=== PATIENT | male | born 1965 | race Caucasian/White ===

== ENCOUNTER 2018-06-26 10:06 | Observation (INO) | payer BC ==
[2018-06-26] MEDS: Nitroglycerin 0.4 MG Tab.SL SL ONE ×2 (10:17→10:30)
[2018-06-26] MEDS ORDERED: Sodium Chloride 0.9% 10 ML Syringe FLUSH PRN (10:34)
--- NOTE | 2018-06-26 11:15 | EDM.PDOC ---
ED HPI GENERAL MEDICAL PROBLEM - General Chief Complaint: Chest Pain Stated Complaint: CHEST PAIN, DIZZY Time Seen by Provider: 06/26/18 10:06 Source of Information: Reports: Patient, Family, RN History Limitations: Reports: No Limitations - History of Present Illness INITIAL COMMENTS - FREE TEXT/NARRATIVE: 53 yr male presents with chest heaviness, started yesterday early afternoon, States the heaviness didn't stop He did take Jessica [place] this am 2 tablets. He has had the thyroid medicine and Propranolol this am. CqV4=160%, pulse 80, resp 18 BP 161/87. Pt is alert and diaphoretic, his is with him. States some numbness to hands, started yesterday. - Related Data Allergies Allergy/AdvReac Type Severity Reaction Status Date / Time Penicillins Allergy Cannot Verified 06/26/18 10:41 Remember Home Meds: Home Meds Levothyroxine 112 mcg PO ACBREAKFAST #30 tab 06/26/18 [Rx] Multivitamin [Multivitamins] 1 each PO DAILY 06/26/18 [History] Propranolol [Inderal LA 24 Hr] 60 mg PO DAILY 06/26/18 [History] Past Medical History HEENT History: Reports: None Cardiovascular History: Reports: None Respiratory History: Reports: None Neurological History: Reports: None Other Neuro History: tremors mostly in hands and sometimes in the head as well Endocrine/Metabolic History: Reports: None Hematologic History: Reports: None Oncologic (Cancer) History: Reports: None - Past Surgical History Other HEENT Surgeries/Procedures: vision with glasses working well Other Musculoskeletal Surgeries/Procedures:: laminectomy. back pain, with PT intervention at that time ED ROS GENERAL - Review of Systems Review Of Systems: See Below Constitutional: Reports: Weakness, Diaphoresis HEENT: Reports: No Symptoms Respiratory: Reports: No Symptoms Cardiovascular: Reports: Chest Pain, Dyspnea on Exertion Endocrine: Reports: No Symptoms GI/Abdominal: Reports: No Symptoms : Reports: No Symptoms Musculoskeletal: Reports: No Symptoms Skin: Reports: Diaphoresis Neurological: Reports: No Symptoms Psychiatric: Reports: Anxiety Hematologic/Lymphatic: Reports: No Symptoms Immunologic: Reports: No Symptoms ED EXAM, GENERAL - Physical Exam Exam: See Below Exam Limited By: No Limitations General Appearance: Alert, WD/WN, Anxious Eye Exam: Bilateral Eye: PERRL Ears: Hearing Grossly Normal Nose: Normal Inspection, Normal Mucosa Throat/Mouth: Normal Inspection, Normal Voice, No Airway Compromise Head: Atraumatic, Normocephalic Neck: Supple, Non-Tender, Full Range of Motion Respiratory/Chest: No Respiratory Distress, Lungs Clear, Normal Breath Sounds Cardiovascular: Regular Rate, Rhythm, No Edema GI/Abdominal: Soft, Non-Tender Back Exam: Normal Inspection Extremities: Normal Inspection, Normal Range of Motion, No Pedal Edema Neurological: Alert, Oriented, Normal Cognition Psychiatric: Normal Affect, Normal Mood Skin Exam: Warm, Normal Color, Diaphoretic Lymphatic: No Adenopathy Course - Vital Signs Last Recorded V/S: Last Vital Signs Temp 98.1 F 06/26/18 15:38 Pulse 72 06/26/18 18:00 Resp 18 06/26/18 18:00 BP 149/82 H 06/26/18 18:00 Pulse Ox 98 06/26/18 18:00 - Orders/Labs/Meds Orders: Active Orders 24 hr Category Date Time Status Cardiac Monitoring [RC] .As Directed Care 06/26/18 10:33 Active EKG Documentation Completion [RC] ASDIRECTED Care 06/26/18 10:10 Active Sodium Chloride 0.9% [Saline Flush] Med 06/26/18 10:34 Active 10 ml FLUSH ASDIRECTED PRN Peripheral IV Insertion Adult [OM.PC] Routine Oth 06/26/18 10:20 Ordered Medication Orders Sodium Chloride (Saline Flush) 10 ml FLUSH ASDIRECTED PRN PRN Reason: Keep Vein Open Last Admin: 06/26/18 10:25 Dose: 10 ml Labs: Laboratory Tests 06/26/18 06/26/18 06/26/18 Range/Units 10:10 10:10 10:10 WBC 11.7 H D (4.0-11.0) K/uL RBC 5.19 (4.50-6.50) M/uL Hgb 16.4 (13.0-18.0) g/dL Hct 47.5 (40.0-54.0) % MCV 92 (76-96) fL MCH 31.6 (27.0-32.0) pg MCHC 34.5 (31.0-35.0) g/dL RDW 13.6 (11.0-16.0) % Plt Count 231 D (150-400) K/uL MPV 9.6 (6.0-10.0) fL Neut % (Auto) 74.5 H (45.0-70.0) % Lymph % (Auto) 15.0 L (20.0-40.0) % [place] % (Auto) 8.7 (3.0-10.0) % Eos % (Auto) 1.5 (1.0-5.0) % Baso % (Auto) 0.3 (0.0-0.5) % Neut # (Auto) 8.74 H (2.00-7.50) K/uL Lymph # (Auto) 1.76 (1.50-4.00) K/uL [place] # (Auto) 1.02 H (0.20-0.80) K/uL Eos # (Auto) 0.18 (0.04-0.40) K/uL Baso # (Auto) 0.03 (0.02-0.10) K/uL Sodium 139 (136-145) mmol/L Potassium 4.3 (3.5-5.1) mmol/L Chloride 98 (98-107) mmol/L Carbon Dioxide 27.4 (21.0-32.0) mmol/L Anion Gap 17.9 H (5.0-15.0) mmol/L BUN 15 (8-26) mg/dL Creatinine 1.31 H (0.70-1.30) mg/dL Est Cr Clr Drug Dosing 73.22 mL/min Estimated GFR (MDRD) 58 L (>60) MLS/MIN BUN/Creatinine Ratio 11.5 (6-25) Glucose 136 H D (74-100) mg/dL Calcium 9.1 (8.5-10.1) mg/dL Total Bilirubin 1.0 (0.0-1.0) mg/dL AST 36 (15-37) U/L ALT 68 (12-78) U/L Alkaline Phosphatase 53 (46-116) U/L Troponin I < 0.017 (0.000-0.060) ng/mL Total Protein 7.8 (6.4-8.2) g/dL Albumin 3.8 (3.4-5.0) g/dL Globulin 4.0 (2.2-4.2) g/dL Albumin/Globulin Ratio 0.9 (0.8-2.0) TSH, Ultra Sensitive (0.358-3.740) uIU/mL 06/26/18 Range/Units 10:10 WBC (4.0-11.0) K/uL RBC (4.50-6.50) M/uL Hgb (13.0-18.0) g/dL Hct (40.0-54.0) % MCV (76-96) fL MCH (27.0-32.0) pg MCHC (31.0-35.0) g/dL RDW (11.0-16.0) % Plt Count (150-400) K/uL MPV (6.0-10.0) fL Neut % (Auto) (45.0-70.0) % Lymph % (Auto) (20.0-40.0) % Carter % (Auto) (3.0-10.0) % Eos % (Auto) (1.0-5.0) % Baso % (Auto) (0.0-0.5) % Neut # (Auto) (2.00-7.50) K/uL Lymph # (Auto) (1.50-4.00) K/uL [place] # (Auto) (0.20-0.80) K/uL Eos # (Auto) (0.04-0.40) K/uL Baso # (Auto) (0.02-0.10) K/uL Sodium (136-145) mmol/L Potassium (3.5-5.1) mmol/L Chloride (98-107) mmol/L Carbon Dioxide (21.0-32.0) mmol/L Anion Gap (5.0-15.0) mmol/L BUN (8-26) mg/dL Creatinine (0.70-1.30) mg/dL Est Cr Clr Drug Dosing mL/min Estimated GFR (MDRD) (>60) MLS/MIN BUN/Creatinine Ratio (6-25) Glucose (74-100) mg/dL Calcium (8.5-10.1) mg/dL Total Bilirubin (0.0-1.0) mg/dL AST (15-37) U/L ALT (12-78) U/L Alkaline Phosphatase (46-116) U/L Troponin I (0.000-0.060) ng/mL Total Protein (6.4-8.2) g/dL Albumin (3.4-5.0) g/dL Globulin (2.2-4.2) g/dL Albumin/Globulin Ratio (0.8-2.0) TSH, Ultra Sensitive 7.030 H D (0.358-3.740) uIU/mL Meds: Medications Generic Name Dose Route Start Last Admin Trade Name Freq PRN Reason Stop Dose Admin Sodium Chloride 10 ml 06/26/18 10:34 06/26/18 10:25 Saline Flush FLUSH 10 ml ASDIRECTED PRN Administration Keep Vein Open Discontinued Medications Generic Name Dose Route Start Last Admin Trade Name Freq PRN Reason Stop Dose Admin Nitroglycerin 0.4 mg 06/26/18 10:15 06/26/18 10:30 Nitrostat SL 06/26/18 10:16 0.4 mg ONETIME ONE Administration - Re-Assessments/Exams Free Text/Narrative Re-Assessment/Exam: 06/26/18 11:15 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 Troponin is negative. Nitro given X2 given and relief of chest pain/pressure. TSH is elevated and he has been having some adjustments with this recently. He did have his am medication. Will place on observation, with process coordinator and recheck troponin, may have cardiac diet as tolerated. IV continues of Nacl. Some diaphoresis continues. 06/26/18 19:02 Reviewed Troponins as negative. Notified pt and of results. Will discharge to home, refill of Levothyroxine and increase dose. Pt states increase in anxiety with stresses and noticing this too. States he had been on medicine about 10 year ago and feels like he needs something again. 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 Counseled on start of Escitalopram daily and RTC in 1 week for follow-up. Pt has a bottle of nitro and will go home with this. Instructed on use of Nitro and 1 tablet every 5 min if needed for chest pain, if after 2 dose, no resolution of chest pain, contact EMS. and pt state understanding. Departure - Departure Time of Disposition: 11:18 Disposition: Refer to Observation Condition: Good Clinical Impression: Chest pain, Hypothyroid, Elevated TSH - Problem List & Annotations (1) Chest pain SNOMED Code(s): 82154203 Code(s): R07.9 - CHEST PAIN, UNSPECIFIED Status: Acute Current Visit: Yes (2) Elevated TSH SNOMED Code(s): 336883395 Code(s): R79.89 - OTHER SPECIFIED ABNORMAL FINDINGS OF BLOOD CHEMISTRY Status: Acute Current Visit: Yes (3) Hypothyroid SNOMED Code(s): 99601056 Code(s): E03.9 - HYPOTHYROIDISM, UNSPECIFIED Status: Acute Current Visit : Yes - Problem List Review Problem List Initiated/Reviewed/Updated: Yes - My Orders Last 24 Hours: My Active Orders 06/26/18 10:10 EKG Documentation Completion [RC] ASDIRECTED 06/26/18 10:20 Peripheral IV Insertion Adult [OM.PC] Routine 06/26/18 10:33 Cardiac Monitoring [RC] .As Directed 06/26/18 10:34 Sodium Chloride 0.9% [Saline Flush] 10 ml FLUSH ASDIRECTED PRN - Assessment/Plan Last 24 Hours: My Active Orders 06/26/18 10:10 EKG Documentation Completion [RC] ASDIRECTED 06/26/18 10:20 Peripheral IV Insertion Adult [OM.PC] Routine 06/26/18 10:33 Cardiac Monitoring [RC] .As Directed 06/26/18 10:34 Sodium Chloride 0.9% [Saline Flush] 10 ml FLUSH ASDIRECTED PRN Plan: Will place on observation for this chest pain, resolved with nitro X 2. He did have ASA 650mg at home. Troponins and EKG and labs reviewed. NSR w rate of 80. OaV0=954% on room air. Diaphoresis is improving. Continue with IV fluid, process coordinator, VS q 4 hour and repeat troponin this afternoon. 17:00 Will discharge to home, refill of Levothyroxine and increase dose. Pt states increase in anxiety with stresses and noticing this too. States he had been on medicine about 10 year ago and feels like he needs something again. 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 Counseled on start of Escitalopram daily and RTC in 1 week for follow-up. Pt has a bottle of nitro and will go home with this. Instructed on use of Nitro and 1 tablet every 5 min if needed for chest pain, if after 2 dose, no resolution of chest pain, contact EMS. and pt state understanding.
[2018-06-26 18:37] VITALS: BP 149/82
[2018-06-26] MEDS ORDERED: Sodium Chloride 0.9% 1,000 ML IV SCH (19:30)
== END 2018-06-26 17:45 | disposition home or self-care (01) ==
LOC: LB.ED 10:06 → LB.MS 11:10 → UNDOADMOB 11:13
PROVIDERS: ADMIT Nurse Practitioner Family; ATTEND Nurse Practitioner Family
DX: R07.9 Chest pain, unspecified (principal); R79.89 Other specified abnormal findings of blood chemistry; E03.9 Hypothyroidism, unspecified; Z79.890 Hormone replacement therapy; Z88.0 Allergy status to penicillin
CPT/HCPCS: 36415; 80053; 84443; 84484; 85025; 93005; 96360; 96361; 99285-25; G0378; J7030

== ENCOUNTER 2019-11-28 08:59 | Day surgery (SDC) | payer BC ==
[~2019-11-28 08:59] MED LIST: Metoclopramide 10 MG/2 ML SDV IV PRN; Sodium Chloride 0.9% 1,000 ML IV SCH
[2019-11-28] MEDS ORDERED: Propofol 1,000 MG/100 ML SDV ONE (11:15)
[2019-11-28 11:49] VITALS: BP 135/75; PULSE 50
--- NOTE | 2019-11-28 17:12 | OR ---
DATE OF OPERATION: 11/28/2019 SURGEON: Gelacio Kang MD PREOPERATIVE DIAGNOSIS: Personal history of polyps and family history of colon cancer. POSTOPERATIVE DIAGNOSIS: Personal history of polyps and family history of colon cancer. PROCEDURE: Colonoscopy. ANESTHESIA: MAC. ESTIMATED BLOOD LOSS: None. COMPLICATIONS: None. INDICATION FOR THE PROCEDURE: The patient is a 54-year-old male who is here today for surveillance colonoscopy. He last had a colonoscopy about 4 years ago, was previously found to have benign polyps. Also has family history of colon cancer with both parents having colon cancer. The patient is here today for surveillance colonoscopy. DESCRIPTION OF PROCEDURE: Informed consent was obtained from the patient. The patient was taken to the operating room, placed on the table in left lateral decubitus position. Monitored anesthesia care was administered. Digital rectal exam performed, it was normal. Colonoscope was then advanced through the anus directed toward the cecum. Cecum was reached and identified by appendiceal orifice and ileocecal valve. Colonoscope was then slowly withdrawn. No polyps. No masses. No areas of ischemia or inflammation. No AV malformations or diverticula noted. Retroflexion was then performed in the rectum which was also otherwise unremarkable. Colonoscope was then withdrawn. FINDINGS: Normal colonoscopy. RECOMMENDATIONS: We would recommend repeat screening colonoscopy in 5 years for family history of colon cancer. OVI/ROB /[id number]
== END 2019-11-28 13:50 | disposition home or self-care (01) ==
LOC: LB.SDS 08:59
PROVIDERS: ATTEND Surgery
DX: K92.1 Melena (principal); N43.3 Hydrocele, unspecified; Z80.0 Family history of malignant neoplasm of digestive organs; Z86.010 Personal history of colon polyps; Z88.0 Allergy status to penicillin; Z98.890 Other specified postprocedural states
CPT/HCPCS: 45378; J2704; J7030; G0121

== ENCOUNTER 2021-04-17 18:30 | Observation (INO) | payer BC ==
[2021-04-17] MEDS: Albuterol/Ipratropium 3.0-0.5 MG/3 ML Neb Soln NEB SCH ×3 (18:48→19:40)
--- NOTE | 2021-04-17 19:09 | EDM.PDOC ---
ED HPI GENERAL MEDICAL PROBLEM - General Chief Complaint: Respiratory Problem Stated Complaint: gasping for air Time Seen by Provider: 04/17/21 18:45 Source of Information: Reports: Patient History Limitations: Reports: Respiratory Distress - History of Present Illness INITIAL COMMENTS - FREE TEXT/NARRATIVE: 55-year-old male presents to the ED complaining of shortness of breath. Patient had acute onset yesterday evening that gradually got worse over the last 24 hours. Patient has never experienced an episode like this. Patient felt well up to the point this occurred. Positive for: Minor allergies to his cats, cough. Negative for: Chest pain, trauma, fever, cardiac history, syncope/near syncope, nausea vomiting, rash, swollen joints, headache, blurred vision, diffic ulty swallowing, no constipation diarrhea black tarry stool or blood in stool. - Related Data Allergies Allergy/AdvReac Type Severity Reaction Status Date / Time Penicillins Allergy Cannot Verified 11/27/19 09:59 Remember Home Meds: Home Meds Levothyroxine 112 mcg PO ACBREAKFAST #30 tab 06/26/18 [Rx] Multivitamin [Multivitamins] 1 each PO DAILY 06/26/18 [History] Propranolol [Inderal LA 24 Hr] 60 mg PO DAILY 06/26/18 [History] Escitalopram [Lexapro] 10 mg PO DAILY 11/27/19 [History] Past Medical History HEENT History: Reports: None Cardiovascular History: Reports: None Respiratory History: Reports: None Genitourinary History: Reports: Prostate Disorder, Other (See Below) Other Genitourinary History: Enlarged prostate Neurological History: Reports: None Other Neuro History: tremors mostly in hands and sometimes in the head as well Psychiatric History: Reports: None Endocrine/Metabolic History: Reports: None Hematologic History: Reports: None Immunologic History: Reports: None Oncologic (Cancer) History: Reports: None Dermatologic History: Reports: Other (See Below) Other Dermatologic History: Very dry skin with heals toes and fingers cracking - Past Surgical History Other HEENT Surgeries/Procedures: vision with glasses working well GI Surgical History: Reports: Colonoscopy Other GI Surgeries/Procedures: Hx polyps Neurological Surgical History: Reports: Laminectomy Other Musculoskeletal Surgeries/Procedures:: laminectomy. back pain, with PT intervention at that time Social & Family History - Family History Family Medical History: No Pertinent Family History - Caffeine Use Caffeine Use: Reports: Coffee ED ROS GENERAL - Review of Systems Review Of Systems: See Below Constitutional: Reports: No Symptoms HEENT: Reports: No Symptoms Respiratory: Reports: Shortness of Breath, Wheezing, Cough Cardiovascular: Reports: No Symptoms Endocrine: Reports: No Symptoms GI/Abdominal: Reports: No Symptoms : Reports: No Symptoms Musculoskeletal: Reports: No Symptoms Skin: Reports: No Symptoms Neurological: Reports: No Symptoms Psychiatric: Reports: No Symptoms Hematologic/Lymphatic: Reports: No Symptoms Immunologic: Reports: Environmental Allergy (cats) ED EXAM, GENERAL - Physical Exam Exam: See Below Free Text/Narrative:: 55-year-old male presents in room 172 in a wheelchair, in obvious respiratory distress, speaking in 1-2 word sentences audible wheezing without auscultation, patient alert and oriented through 3 GCS 4 5 6, no obvious trauma Exam Limited By: Respiratory Distress General Appearance: WD/WN, Severe Distress (Respiratory) Eye Exam: Bilateral Eye: EOMI, PERRL Ears: Normal External Exam, Hearing Grossly Normal Nose: Normal Inspection, Normal Mucosa, No Blood Throat/Mouth: Normal Lips, Normal Voice, No Airway Compromise Head: Atraumatic, Normocephalic Neck: Normal Inspection. No: Lymphadenopathy (R), Lymphadenopathy (L) Respiratory/Chest: Respiratory Distress, Decreased Breath Sounds, Wheezing, Accessory Muscle Use, Prolonged Expiration Cardiovascular: Normal Peripheral Pulses, Regular Rate, Rhythm, No Edema, No Gallop, No JVD, No Murmur, No Rub GI/Abdominal: Normal Bowel Sounds, Non-Tender, Distended Back Exam: No: CVA Tenderness (R), CVA Tenderness (L) Extremities: Normal Inspection, Non-Tender, No Pedal Edema Neurological: Alert, Oriented Psychiatric: Normal Affect, Normal Mood Skin Exam: Warm, Intact, Normal Color, No Rash, Diaphoretic (To dry after treatment) Lymphatic: No Adenopathy #1 Interpretation EKG Date: 04/17/21 (Normal sinus rhythm, without ectopy, no ST elevation or depression, this is not a STEMI) Course - Vital Signs Last Recorded V/S: Last Vital Signs Temp 96.5 F L 04/17/21 19:44 Pulse 77 04/17/21 19:44 Resp 22 H 04/17/21 19:44 BP 138/88 04/17/21 19:44 Pulse Ox 96 04/17/21 19:44 - Orders/Labs/Meds Orders: Active Orders 24 hr Category Date Time Status RT Aerosol Therapy [RC] ASDIRECTED Care 04/17/21 19:02 Active RT Aerosol Therapy [RC] ASDIRECTED Care 04/17/21 19:43 Active Chest 1V Frontal [CR] Stat Exams 04/17/21 19:00 Taken Albuterol [Proventil Neb Soln] Med 04/17/21 19:42 Active 2.5 mg NEB Q2H PRN Albuterol/Ipratropium [DuoNeb 3.0-0.5 MG/3 ML] Med 04/17/21 19:15 Active 3 ml NEB QID EKG 12 Lead [EK] Routine Ther 04/17/21 19:00 Ordered Medication Orders Albuterol (Albuterol 0.083% 2.5 Mg/3 Ml Neb Soln) 2.5 mg NEB Q2H PRN PRN Reason: sob Albuterol/Ipratropium (Albuterol/Ipratropium 3.0-0.5 Mg/3 Ml Neb Soln) 3 ml NEB QID [facility] Admin: 04/17/21 19:40 Dose: 3 ml Documented by: Admin: 04/17/21 19:03 Dose: 3 ml Documented by: Admin: 04/17/21 18:48 Dose: 3 ml Documented by: GALDINO Labs: Laboratory Tests 04/17/21 04/17/21 04/17/21 Range/Units 18:45 18:50 19:00 WBC 6.0 D (4.0-11.0) K/uL RBC 5.22 (4.50-6.50) M/uL Hgb 15.4 (13.0-18.0) g/dL Hct 44.3 (40.0-54.0) % MCV 85 (76-96) fL MCH 29.5 (27.0-32.0) pg MCHC 34.8 (31.0-35.0) g/dL RDW 14.4 (11.0-16.0) % Plt Count 178 D (150-400) K/uL MPV 9.3 (6.0-10.0) fL Neut % (Auto) 65.1 (45.0-70.0) % Lymph % (Auto) 19.7 L (20.0-40.0) % [place] % (Auto) 6.3 (3.0-10.0) % Eos % (Auto) 8.1 H (1.0-5.0) % Baso % (Auto) 0.8 H (0.0-0.5) % Neut # (Auto) 3.92 (2.00-7.50) K/uL Lymph # (Auto) 1.19 L (1.50-4.00) K/uL [place] # (Auto) 0.38 (0.20-0.80) K/uL Eos # (Auto) 0.49 H (0.04-0.40) K/uL Baso # (Auto) 0.05 (0.02-0.10) K/uL D-Dimer, Quantitative (0-400) ng/mL Sodium (136-145) mmol/L Potassium (3.5-5.1) mmol/L Chloride (98-107) mmol/L Carbon Dioxide (21.0-32.0) mmol/L Anion Gap (5.0-15.0) mmol/L BUN (8-26) mg/dL Creatinine (0.70-1.30) mg/dL Est Cr Clr Drug Dosing Estimated GFR (MDRD) (>60) MLS/MIN BUN/Creatinine Ratio (6-25) Glucose (74-100) mg/dL Calcium (8.5-10.1) mg/dL Troponin I (0.000-0.060) ng/mL TSH, Ultra Sensitive (0.358-3.740) uIU/mL SARS-CoV-2 RNA (NEO) Cancelled SARS CoV-2 RNA Rapid NEO Negative 04/17/21 04/17/21 04/17/21 Range/Units 19:00 19:02 19:03 WBC (4.0-11.0) K/uL RBC (4.50-6.50) M/uL Hgb (13.0-18.0) g/dL Hct (40.0-54.0) % MCV (76-96) fL MCH (27.0-32.0) pg MCHC (31.0-35.0) g/dL RDW (11.0-16.0) % Plt Count (150-400) K/uL MPV (6.0-10.0) fL Neut % (Auto) (45.0-70.0) % Lymph % (Auto) (20.0-40.0) % [place] % (Auto) (3.0-10.0) % Eos % (Auto) (1.0-5.0) % Baso % (Auto) (0.0-0.5) % Neut # (Auto) (2.00-7.50) K/uL Lymph # (Auto) (1.50-4.00) K/uL [place] # (Auto) (0.20-0.80) K/uL Eos # (Auto) (0.04-0.40) K/uL Baso # (Auto) (0.02-0.10) K/uL D-Dimer, Quantitative < 100 (0-400) ng/mL Sodium 137 (136-145) mmol/L Potassium 4.0 (3.5-5.1) mmol/L Chloride 103 (98-107) mmol/L Carbon Dioxide 28.1 (21.0-32.0) mmol/L Anion Gap 9.9 (5.0-15.0) mmol/L BUN 16 (8-26) mg/dL Creatinine 1.08 (0.70-1.30) mg/dL Est Cr Clr Drug Dosing TNP Estimated GFR (MDRD) > 60 (>60) MLS/MIN BUN/Creatinine Ratio 14.8 (6-25) Glucose 151 H (74-100) mg/dL Calcium 8.7 (8.5-10.1) mg/dL Troponin I < 0.017 (0.000-0.060) ng/mL TSH, Ultra Sensitive 3.904 H (0.358-3.740) uIU/mL SARS-CoV-2 RNA (NEO) SARS CoV-2 RNA Rapid NEO Meds: Medications Generic Name Dose Route Start Last Admin Trade Name Freq PRN Reason Stop Dose Admin Albuterol 2.5 mg 04/17/21 19:42 Albuterol 0.083% 2.5 Mg/3 Ml Neb Soln NEB Q2H PRN sob Albuterol/Ipratropium 3 ml 04/17/21 19:15 04/17/21 19:40 Albuterol/Ipratropium 3.0-0.5 Mg/3 Ml Neb Soln NEB 3 ml QID DANIEL Administration Discontinued Medications Generic Name Dose Route Start Last Admin Trade Name Freq PRN Reason Stop Dose Admin Albuterol Confirm 04/17/21 19:48 04/17/21 19:41 Albuterol 0.083% 2.5 Mg/3 Ml Neb Soln Administered 04/17/21 19:49 Not Given Dose 2.5 mg .ROUTE .STK-MED ONE Diphenhydramine HCl Confirm 04/17/21 20:02 Diphenhydramine 50 Mg/Ml Sdv Administered 04/17/21 20:03 Dose 50 mg .ROUTE .STK-MED ONE Methylprednisolone Sodium Succinate 125 mg 04/17/21 19:35 04/17/21 19:06 Methylprednisolone Sodium Succinate 125 Mg/2 Ml Sdv IVPUSH 04/17/21 19:36 125 mg ONETIME ONE Administration Departure - Departure Time of Disposition: 17:45 Disposition: Refer to Observation Condition: Good Clinical Impression: Acute asthma - Discharge Information *PRESCRIPTION DRUG MONITORING PROGRAM REVIEWED*: No *COPY OF PRESCRIPTION DRUG MONITORING REPORT IN PATIENT CHENG: No Referrals: PCP,None [Primary Care Provider] - Forms: ED Department Discharge Sepsis Event Note (ED) - Focused Exam Vital Signs: Vital Signs Temp Pulse Resp BP Pulse Ox 04/17/21 19:44 96.5 F L 77 22 H 138/88 96 - My Orders Last 24 Hours: My Active Orders 04/17/21 19:00 Chest 1V Frontal [CR] Stat EKG 12 Lead [EK] Routine 04/17/21 19:02 RT Aerosol Therapy [RC] ASDIRECTED 04/17/21 19:15 Albuterol/Ipratropium [DuoNeb 3.0-0.5 MG/3 ML] 3 ml NEB QID 04/17/21 19:42 Albuterol [Proventil Neb Soln] 2.5 mg NEB Q2H PRN 04/17/21 19:43 RT Aerosol Therapy [RC] ASDIRECTED - Assessment/Plan Last 24 Hours: My Active Orders 04/17/21 19:00 Chest 1V Frontal [CR] Stat EKG 12 Lead [EK] Routine 04/17/21 19:02 RT Aerosol Therapy [RC] ASDIRECTED 04/17/21 19:15 Albuterol/Ipratropium [DuoNeb 3.0-0.5 MG/3 ML] 3 ml NEB QID 04/17/21 19:42 Albuterol [Proventil Neb Soln] 2.5 mg NEB Q2H PRN 04/17/21 19:43 RT Aerosol Therapy [RC] ASDIRECTED Assessment:: 1. Shortness of breath/wheezing Plan: ABC, history, DuoNeb continuous, exam, labs, chest x-ray, 125 mg Solu-Medrol, twelve-lead EKG: Patient's respiratory distress, gasping, inability to speak in full sentences cleared quickly with treatment with DuoNeb, and Solu-Medrol. Patient remained tight, wheezy in all lung pace despite treatment. Decision was made to admit patient to hospital for observation and further treatment to include continuous nebulized albuterol/ipratropium, Benadryl 50 mg, and if not necessary 2 g of magnesium IV infused slowly to reverse bronchospasm. Further investigation and thought should be devoted to the trigger of this event. PEnegative D-dimer Cardiacnegative twelve-lead EKG, negative troponin Pneumoniachest x-ray negative for consolidation, negative COVID-19
[2021-04-17] MEDS ORDERED: methylPREDNISolone Sodium Succinate 125 MG/2 ML SDV IVPUSH ONE (19:35)
[2021-04-17] MEDS ORDERED: Albuterol 0.083% 2.5 MG/3 ML Neb Soln NEB PRN (19:42)
[2021-04-17] MEDS ORDERED: Albuterol 0.083% 2.5 MG/3 ML Neb Soln ONE (19:48)
[2021-04-17] MEDS ORDERED: diphenhydrAMINE 50 MG/ML SDV ONE (20:02)
[2021-04-17] MEDS ORDERED: diphenhydrAMINE 50 MG/ML SDV IVPUSH ONE (20:29)
[2021-04-17] MEDS ORDERED: Sodium Chloride 0.9% 10 ML Syringe FLUSH PRN (20:30)
[2021-04-17] MEDS ORDERED: Albuterol/Ipratropium 3.0-0.5 MG/3 ML Neb Soln NEB PRN (20:30)
[2021-04-17] MEDS ORDERED: Acetaminophen 325 MG Tab PO PRN (20:30)
[2021-04-17] MEDS ORDERED: Magnesium Sulfate/D5W 1 GM/100 ML Premix Bag IV PRN (20:38)
--- NOTE | 2021-04-18 06:37 | PCM.HP.2 ---
H&P History of Present Illness - General Date of Service: 04/18/21 Admit Problem/Dx: Admission Diagnosis/Problem Admission Diagnosis/Problem Asthma Source of Information: Patient History Limitations: Reports: No Limitations - History of Present Illness Initial Comments - Free Text/Narative: Patient was admitted from ED to observation for an acute onset of asthma/wheezing with shortness of breath. This was an acute onset patient not experienced any episodes like this prior, patient was gasping to breathe, only able speak in 1-2 word sentences. No known triggers to the event, patient denies chest pain, syncope/near syncope, nausea vomiting, arm pain or jaw pain, dizzy l ightheaded, constipation diarrhea, blurred vision, headache, difficulty swallowing, rash, swollen joints or trauma. No toxic exposures or new products known. Patient does have a mild allergy to cats - Related Data Allergies/Adverse Reactions: Allergies Allergy/AdvReac Type Severity Reaction Status Date / Time Penicillins Allergy Cannot Verified 11/27/19 09:59 Remember Home Medications: Home Meds Levothyroxine 112 mcg PO ACBREAKFAST #30 tab 06/26/18 [Rx] Multivitamin [Multivitamins] 1 each PO DAILY 06/26/18 [History] Propranolol [Inderal LA 24 Hr] 60 mg PO DAILY 06/26/18 [History] Escitalopram [Lexapro] 10 mg PO DAILY 11/27/19 [History] Albuterol Sulfate [Albuterol Sulfate Hfa] 8.5 gm IH ASDIRECTED PRN #1 hfa.aer.ad 04/18/21 [Rx] Cetirizine HCl [Zyrtec] 10 mg PO DAILY #30 capsule 04/18/21 [Rx] Fluticasone Propionate [Flovent HFA] 2 puff INH BID #1 mdi 04/18/21 [Rx] Past Medical History HEENT History: Reports: None Cardiovascular History: Reports: None Respiratory History: Reports: None Genitourinary History: Reports: Prostate Disorder, Other (See Below) Other Genitourinary History: Enlarged prostate Neurological History: Reports: None Other Neuro History: tremors mostly in hands and sometimes in the head as well Psychiatric History: Reports: None Endocrine/Metabolic History: Reports: None Hematologic History: Reports: None Immunologic History: Reports: None Oncologic (Cancer) History: Reports: None Dermatologic History: Reports: Other (See Below) Other Dermatologic History: Very dry skin with heals toes and fingers cracking - Past Surgical History Other HEENT Surgeries/Procedures: vision with glasses working well GI Surgical History: Reports: Colonoscopy Other GI Surgeries/Procedures: Hx polyps Neurological Surgical History: Reports: Laminectomy Other Musculoskeletal Surgeries/Procedures:: laminectomy. back pain, with PT intervention at that time Social & Family History - Family History Family Medical History: No Pertinent Family History - Tobacco Use Tobacco Use Status *Q: Never Tobacco User - Caffeine Use Caffeine Use: Reports: Coffee - Recreational Drug Use Recreational Drug Use: No H&P Review of Systems - Review of Systems: Review Of Systems: See Below General: Reports: No Symptoms, Other (Obese) HEENT: Reports: No Symptoms Pulmonary: Reports: No Symptoms Cardiovascular: Reports: Chest Pain, Blood Pressure Problem Gastrointestinal: Reports: No Symptoms Genitourinary: Reports: No Symptoms Musculoskeletal: Reports: No Symptoms Skin: Reports: No Symptoms Psychiatric: Reports: No Symptoms Neurological: Reports: No Symptoms Hematologic/Lymphatic: Reports: No Symptoms Immunologic: Reports: No Symptoms Review of Systems Comment:: Patient is hypothyroid Exam - Exam Exam: See Below - Vital Signs Vital Signs: Last Vital Signs Temp 97.2 F 04/18/21 03:29 Pulse 57 L 04/18/21 03:29 Resp 16 04/18/21 03:29 BP 143/74 H 04/18/21 03:29 Pulse Ox 96 04/18/21 03:29 Weight: 283 lb 15.286 oz - Exam Quality Assessment: Supplemental Oxygen General: Alert, Oriented, 4 HEENT: PERRLA, Hearing Intact, Mucosa Moist & Peerless, Nares Patent, Normal Nasal Septum, Posterior Pharynx Clear, Conjunctiva Clear, EOMI, EACs Clear, TMs Clear Neck: Supple, Trachea Midline, 2 Lungs: Wheezing Cardiovascular: Regular Rate, Regular Rhythm GI/Abdominal Exam: Normal Bowel Sounds, Soft, Non-Tender, No Organomegaly, No Distention, No Abnormal Bruit, No Mass, Pelvis Stable Back Exam: Normal Inspection Extremities: Normal Inspection, Normal Range of Motion, Non-Tender, No Pedal Edema, Normal Capillary Refill Skin: Warm, Dry, Intact Neurological: Normal Speech, Normal Tone Neuro Extensive - Mental Status: Alert, Oriented x3, Normal Cognition, Memory Intact Psychiatric: Alert, Normal Affect, Normal Mood - Patient Data Lab Results Last 24 hrs: Laboratory Results - last 24 hr 04/17/21 04/17/21 04/17/21 Range/Units 18:45 18:50 19:00 WBC 6.0 D (4.0-11.0) K/uL RBC 5.22 (4.50-6.50) M/uL Hgb 15.4 (13.0-18.0) g/dL Hct 44.3 (40.0-54.0) % MCV 85 (76-96) fL MCH 29.5 (27.0-32.0) pg MCHC 34.8 (31.0-35.0) g/dL RDW 14.4 (11.0-16.0) % Plt Count 178 D (150-400) K/uL MPV 9.3 (6.0-10.0) fL Neut % (Auto) 65.1 (45.0-70.0) % Lymph % (Auto) 19.7 L (20.0-40.0) % [place] % (Auto) 6.3 (3.0-10.0) % Eos % (Auto) 8.1 H (1.0-5.0) % Baso % (Auto) 0.8 H (0.0-0.5) % Neut # (Auto) 3.92 (2.00-7.50) K/uL Lymph # (Auto) 1.19 L (1.50-4.00) K/uL [place] # (Auto) 0.38 (0.20-0.80) K/uL Eos # (Auto) 0.49 H (0.04-0.40) K/uL Baso # (Auto) 0.05 (0.02-0.10) K/uL D-Dimer, Quantitative (0-400) ng/mL Sodium (136-145) mmol/L Potassium (3.5-5.1) mmol/L Chloride (98-107) mmol/L Carbon Dioxide (21.0-32.0) mmol/L Anion Gap (5.0-15.0) mmol/L BUN (8-26) mg/dL Creatinine (0.70-1.30) mg/dL Est Cr Clr Drug Dosing Estimated GFR (MDRD) (>60) MLS/MIN BUN/Creatinine Ratio (6-25) Glucose (74-100) mg/dL Calcium (8.5-10.1) mg/dL Troponin I (0.000-0.060) ng/mL TSH, Ultra Sensitive (0.358-3.740) uIU/mL SARS-CoV-2 RNA (NEO) Cancelled SARS CoV-2 RNA Rapid NEO Negative 04/17/21 04/17/21 04/17/21 Range/Units 19:00 19:02 19:03 WBC (4.0-11.0) K/uL RBC (4.50-6.50) M/uL Hgb (13.0-18.0) g/dL Hct (40.0-54.0) % MCV (76-96) fL MCH (27.0-32.0) pg MCHC (31.0-35.0) g/dL RDW (11.0-16.0) % Plt Count (150-400) K/uL MPV (6.0-10.0) fL Neut % (Auto) (45.0-70.0) % Lymph % (Auto) (20.0-40.0) % [place] % (Auto) (3.0-10.0) % Eos % (Auto) (1.0-5.0) % Baso % (Auto) (0.0-0.5) % Neut # (Auto) (2.00-7.50) K/uL Lymph # (Auto) (1.50-4.00) K/uL [place] # (Auto) (0.20-0.80) K/uL Eos # (Auto) (0.04-0.40) K/uL Baso # (Auto) (0.02-0.10) K/uL D-Dimer, Quantitative < 100 (0-400) ng/mL Sodium 137 (136-145) mmol/L Potassium 4.0 (3.5-5.1) mmol/L Chloride 103 (98-107) mmol/L Carbon Dioxide 28.1 (21.0-32.0) mmol/L Anion Gap 9.9 (5.0-15.0) mmol/L BUN 16 (8-26) mg/dL Creatinine 1.08 (0.70-1.30) mg/dL Est Cr Clr Drug Dosing TNP Estimated GFR (MDRD) > 60 (>60) MLS/MIN BUN/Creatinine Ratio 14.8 (6-25) Glucose 151 H (74-100) mg/dL Calcium 8.7 (8.5-10.1) mg/dL Troponin I < 0.017 (0.000-0.060) ng/mL TSH, Ultra Sensitive 3.904 H (0.358-3.740) uIU/mL SARS-CoV-2 RNA (NEO) SARS CoV-2 RNA Rapid NEO Result Diagrams: 04/17/21 19:00 04/17/21 19:00 Sepsis Event Note - Evaluation Sepsis Screening Result: No Definite Risk - Focused Exam Vital Signs: Vital Signs Temp Pulse Resp BP Pulse Ox 04/18/21 03:29 97.2 F 57 L 16 143/74 H 96 04/18/21 00:36 97.6 F 58 L 16 132/50 L 94 L 04/17/21 20:34 96 04/17/21 20:30 97.8 F 56 L 18 127/71 96 04/17/21 19:47 56 L 20 147/71 H 96 04/17/21 19:44 96.5 F L 77 22 H 138/88 96 04/17/21 19:32 59 L 18 138/68 96 04/17/21 19:25 60 18 144/78 H 95 04/17/21 18:45 96.5 F L 77 24 H 138/88 97 - Problem List (1) Acute asthma SNOMED Code(s): 256856946 ICD Code: J45.909 - UNSPECIFIED ASTHMA, UNCOMPLICATED Status: Acute Current Visit: Yes (2) Hypothyroid SNOMED Code(s): 87978670 ICD Code: E03.9 - HYPOTHYROIDISM, UNSPECIFIED Status: Chronic Current Visit: No Problem List Initiated/Reviewed/Updated: Yes Orders Last 24hrs: Active Orders 24 hr Category Date Time Status Patient Status [ADT] Routine ADT 04/17/21 20:30 Active Oxygen Therapy [RC] PRN Care 04/17/21 20:30 Active Pulse Oximetry [RC] Q4HPRN Care 04/17/21 20:34 Active RT Aerosol Therapy [RC] ASDIRECTED Care 04/17/21 19:02 Active RT Aerosol Therapy [RC] ASDIRECTED Care 04/17/21 19:43 Active RT Aerosol Therapy [RC] ASDIRECTED Care 04/17/21 20:36 Active Up ad [place] [RC] ASDIRECTED Care 04/17/21 20:30 Active VTE/DVT Education [RC] Per Unit Routine Care 04/17/21 20:30 Active Vital Signs [RC] Q4H Care 04/17/21 20:30 Active Regular Diet [DIET] Diet 04/18/21 Breakfast Ordered Chest 1V Frontal [CR] Stat Exams 04/17/21 19:00 Taken Chest 2V [CR] AM Exams 04/18/21 05:11 Ordered Acetaminophen [TylenoL] Med 04/17/21 20:30 Active 650 mg PO Q4H PRN Albuterol [Proventil Neb Soln] Med 04/17/21 19:42 Active 2.5 mg NEB Q2H PRN Albuterol/Ipratropium [DuoNeb 3.0-0.5 MG/3 ML] Med 04/17/21 20:30 Active 3 ml NEB ASDIRECTED PRN Albuterol/Ipratropium [DuoNeb 3.0-0.5 MG/3 ML] Med 04/17/21 19:15 Active 3 ml NEB QID Magnesium Sulfate/D5W [Magnesium Sulfate in D5W 1 GM/ Med 04/17/21 20:38 Active 100 ML] 1 gm IV ONETIME PRN Sodium Chloride 0.9% [Saline Flush] Med 04/17/21 20:30 Active 10 ml FLUSH ASDIRECTED PRN Peripheral IV Insertion Adult [OM.PC] Routine Oth 04/17/21 20:30 Ordered Saline Lock Insert [OM.PC] Routine Oth 04/17/21 20:30 Ordered Resuscitation Status Routine Resus Stat 04/17/21 20:30 Ordered EKG 12 Lead [EK] Routine Ther 04/17/21 19:00 Ordered Medication Orders Acetaminophen (Acetaminophen 325 Mg Tab) 650 mg PO Q4H PRN PRN Reason: Pain (Mild 1-3)/fever Albuterol (Albuterol 0.083% 2.5 Mg/3 Ml Neb Soln) 2.5 mg NEB Q2H PRN PRN Reason: sob Albuterol/Ipratropium (Albuterol/Ipratropium 3.0-0.5 Mg/3 Ml Neb Soln) 3 ml NEB QID DANIEL Last Admin: 04/17/21 19:40 Dose: 3 ml Documented by: Admin: 04/17/21 19:03 Dose: 3 ml Documented by: Admin: 04/17/21 18:48 Dose: 3 ml Documented by: GALDINO Albuterol/Ipratropium (Albuterol/Ipratropium 3.0-0.5 Mg/3 Ml Neb Soln) 3 ml NEB ASDIRECTED PRN PRN Reason: Shortness Of Breath/wheezing Last Admin: 04/18/21 03:03 Dose: 3 ml Documented by: GALDINO Magnesium Sulfate/Dextrose (Magnesium Sulfate/D5w 1 Gm/100 Ml Premix Bag) 1 gm IV ONETIME PRN PRN Reason: Shortness of Breath Sodium Chloride (Sodium Chloride 0.9% 10 Ml Syringe) 10 ml FLUSH ASDIRECTED PRN PRN Reason: Keep Vein Open Assessment/Plan Comment:: Assessment: 1. Shortness of breath/acute onset of asthma 2. Hypothyroid with elevated TSH 1. Conditions considered included pulmonary embolism, cardiac to include AMI, pneumonia, flash pulmonary edema, psychogenic hyperventilation, reactive airway disease, toxic exposure. Based on patient's presentation, history, lab value, x- ray symptoms are most consistent with reactive airway disease with an acute onset of asthma. Patient responded to DuoNeb and Solu-Medrol. Patient was admitted for observation and continued treatment. 2. Nonacute problem/chronically high TSH patient to follow-up with primary care provider Plan: ABC, history, exam, labs, chest x-ray, twelve-lead EKG, DuoNeb continuous, Solu- Medrol, IV, Benadryl 50 mg IV, admission, continue DuoNeb every 4 hour Patient reassessed at 0600 patient resting comfortably in a supine position, no respiratory distress, speaking in full sentences. Lung sounds wheezing in all pace except lower left lobe. Moving much more air than patient was last night. 1. Continued DuoNeb every 4 hours. 2. Additional Solu-Medrol 125 mg IV 3. Cetirizine 10 mg 4. Two-view chest x-ray in the morning. 5. Twelve-lead EKG The patient continues to respond well to above treatments, imaging appears well, and a negative EKG plan is to discharge patient home with an MDI for albuterol and Flovent with close follow-up with primary care provider this week.
[2021-04-18] MEDS ORDERED: Cetirizine 10 MG Tab PO ONE (06:54)
[2021-04-18] MEDS: Albuterol/Ipratropium 3.0-0.5 MG/3 ML Neb Soln NEB SCH (07:28)
[2021-04-18 07:41] VITALS: BP 127/72; PULSE 56
[2021-04-18] MEDS ORDERED: methylPREDNISolone Sod Succ 125 MG in Sodium Chloride 0.9% 100 ML IV ONE (09:00)
--- NOTE | 2021-04-18 09:00 | CR ---
Date of Service: 04/17/21 Clinical Data: chest pain AP CHEST: Comparison is made to a prior exam dated 05/14/13 The heart size is normal. The lungs are clear. No pneumothorax. No pleural effusions. No evidence of acute intrathoracic disease. [id number] [facility]
[2021-04-18] MEDS ORDERED: methylPREDNISolone Sodium Succinate 125 MG/2 ML SDV ONE (09:03)
--- NOTE | 2021-04-18 11:55 | DISCH ---
HISTORY OF PRESENT ILLNESS: A 55-year-old male who was admitted last night for an acute asthma attack without any recent history of asthma. The patient thinks that he could have had a reaction to a dog that they are watching for a friend. The patient tells me that he does have history of a childhood asthma, but has not had any symptoms or issues since he went to college when he got away from parents who were both smokers. He has been on nebulizer treatments here as well as Solu-Medrol IV and his symptoms have greatly improved. The patient still feels a little tight at the end of expiration and nursing staff reports ongoing issues with wheezing. The patient states he feels much better. When he arrived, he was only able to take puffs for breaths and could only talk in 1 or 2 word sentences. Lung sounds today reveal end-expiratory wheezes scattered throughout the lung pace. The patient is able to take a deep breath without any coughing or obvious shortness of breath. He will be discharged home today with a nebulizer. I will continue him on DuoNeb q.i.d. for 2 days and then p.r.n. and Pulmicort b.i.d. for 7 days. I will put him on a Medrol Dosepak as well. He is to go home and take it easy. Activity is light duty as tolerated, slowly improving again as tolerated. He does have a clinic appointment scheduled in 1 week. He can follow up then in the clinic for recheck, follow up sooner of course as needed. The patient has no further questions. CRS/MODL /[id number]
== END 2021-04-18 10:38 | disposition home or self-care (01) ==
LOC: LB.ED 18:30 → LB.MS 20:20
PROVIDERS: ADMIT Physician Assistant; ATTEND Physician Assistant
DX: J45.909 Unspecified asthma, uncomplicated (principal); E03.9 Hypothyroidism, unspecified; Z88.0 Allergy status to penicillin; Z79.899 Other long term (current) drug therapy; Z98.890 Other specified postprocedural states; Z79.890 Hormone replacement therapy; Z20.822 Contact with and (suspected) exposure to COVID-19
CPT/HCPCS: 36415; 71045; 80048; 84443; 84484; 85025; 85379; 87635; 93005; 96365; 96375; 96376; 99285; A9270; G0378; J1200; J2930; J3475; 96374; J7620-GY; U0002

== ENCOUNTER 2023-08-28 06:07 | Emergency (ER) | payer BC ==
[2023-08-28] MEDS: Sodium Chloride 0.9% 1,000 ML IV ONE (07:08)
[2023-08-28] MEDS: LORazepam 2 MG/ML SDV IVPUSH ONE (07:13)
[2023-08-28 07:30] LABS: BASOPHILS ABSOLUTE AUTO 0.04 K/uL (0.02-0.10); BASOPHILS PERCENT AUTO 0.5 % (0.0-0.5); EOSINOPHILS ABSOLUTE AUTO 0.22 K/uL (0.04-0.40); EOSINOPHILS PERCENT AUTO 2.6 % (1.0-5.0); HEMATOCRIT 46.2 % (40.0-54.0); HEMOGLOBIN 16.2 g/dL (13.0-18.0); LYMPHOCYTES ABSOLUTE AUTO 1.19 K/uL (1.50-4.00); MEAN CORPUSCULAR HEMOGLOBIN 32.9 pg (27.0-32.0); MEAN CORPUSCULAR HGB CONC 35.1 g/dL (31.0-35.0); MEAN CORPUSCULAR VOLUME 94 fL (76-96); MEAN PLATELET VOLUME 9.8 fL (6.0-10.0); MONOCYTES ABSOLUTE AUTO 0.65 K/uL (0.20-0.80); MONOCYTES PERCENT AUTO 7.6 % (3.0-10.0); NEUTROPHILS PERCENT AUTO 75.3 % (45.0-70.0); PLATELET COUNT,PLT 139 K/uL (150-400); RED BLOOD CELL COUNT 4.92 M/uL (4.50-6.50); RED CELL DISTRIBUTION WIDTH 14.8 % (11.0-16.0); WHITE BLOOD CELL COUNT,WBC 8.5 K/uL (4.0-11.0)
[2023-08-28 07:31] LABS: A/G RATIO 1.1 (0.8-2.0); ALANINE AMINOTRANSFERASE,ALT 63 U/L (12-78); ALBUMIN 3.7 g/dL (3.4-5.0); ALKALINE PHOSPHATASE 60 U/L (46-116); ANION GAP 14.8 mmol/L (5.0-15.0); ASPARTATE AMNIOTRANSFERASE,AST 78 U/L (15-37); BILIRUBIN TOTAL 1.6 mg/dL (0.0-1.0); BLOOD UREA NITROGEN,BUN 13 mg/dL (8-26); BUN/CREATININE RATIO 10.7 (6-25); CALCIUM 8.3 mg/dL (8.5-10.1); CHLORIDE,CL 96 mmol/L (98-107); CREATININE 1.21 mg/dL (0.70-1.30); EST CRCL DRUG DOSING (CG) 74.82 mL/min; ESTIMATED GFR 70 mL/min (>60); GLUCOSE RANDOM 128 mg/dL (74-100); POTASSIUM,K 3.8 mmol/L (3.5-5.1); PROTEIN TOTAL,TP 7.2 g/dL (6.4-8.2); SODIUM,NA 133 mmol/L (136-145)
[2023-08-28] MEDS ORDERED: Sodium Chloride 0.9% 10 ML Syringe FLUSH PRN (07:47)
[2023-08-28 07:56] LABS: ETHANOL BLOOD MEDICAL < 3.0 mg/dL (<3.0)
[2023-08-28 08:14] VITALS: BP 163/86; PULSE 51
== END 2023-08-28 08:24 | disposition home or self-care (01) ==
LOC: LB.ED 06:07
DX: F10.130 Alcohol abuse with withdrawal, uncomplicated (principal); J45.909 Unspecified asthma, uncomplicated; E03.9 Hypothyroidism, unspecified; E66.9 Obesity, unspecified; Z88.0 Allergy status to penicillin; Z79.51 Long term (current) use of inhaled steroids; Y90.9 Presence of alcohol in blood, level not specified; Z79.899 Other long term (current) drug therapy
CPT/HCPCS: 36415; 80053; 80307; 85025; 96361; 96374; 99284; 99284-25; J2060; J7030

== ENCOUNTER 2024-09-18 08:48 | Day surgery (SDC) | payer BC ==
[~2024-09-18 08:48] MED LIST changes: -Sodium Chloride 0.9% 1,000 ML IV SCH
[2024-09-18] MEDS: Sodium Chloride 0.9% 1,000 ML IV SCH (09:24)
[2024-09-18] MEDS ORDERED: Propofol 500 MG/50 ML SDV ONE (10:00)
[2024-09-18 10:18] VITALS: PULSE 51
[2024-09-18 10:23] VITALS: BP 144/75
== END 2024-09-18 11:15 | disposition home or self-care (01) ==
LOC: LB.SDS 08:48
PROVIDERS: ATTEND Surgery
DX: Z12.11 Encounter for screening for malignant neoplasm of colon (principal); Z80.0 Family history of malignant neoplasm of digestive organs; E11.9 Type 2 diabetes mellitus without complications; J45.909 Unspecified asthma, uncomplicated; I10 Essential (primary) hypertension; E78.5 Hyperlipidemia, unspecified; E03.9 Hypothyroidism, unspecified; E66.01 Morbid (severe) obesity due to excess calories; Z79.84 Long term (current) use of oral hypoglycemic drugs; Z79.890 Hormone replacement therapy; Z79.899 Other long term (current) drug therapy; Z88.0 Allergy status to penicillin
CPT/HCPCS: 82947; J2704; J7030